=== PATIENT | male | born 1975 | race Two or more races ===

== ENCOUNTER 2019-08-15 18:23 | Outpatient (AMB) | payer MEDICAID, SELFPAY ==
--- NOTE | 2019-08-15 19:47 | URCARE_ITS ---
Intake Ht./Wt. Decline/Exclusions Patient Declined Height and Weight this visit: No PT Meets exclusion criteria: No Intake [place] Travel (last 14 days): No [facility] Travel (last 14 days): No Been in Contact w/Anyone Being Evaluated for Coronavirus (last 14 days): No Been in Close Contact w/Anyone Dx w/Coronavirus: No Presenting Symptoms: Cough and Fever Zika Travel: No Been in contact w/anyone who has been Dx w/Zika Virus: No Been in contact w/anyone sick during travel outside country: No Patient >or equal to 18 years BMI outside of range 18.5-24.9: Yes Visit Reasons: UC Fever of unknown origin Primary Care Provider: MD URBANO RAYNALDO Is patient in pain?: No Triage Triage Allergy / Med Rec Allergies shellfish derived Allergy (Verified 08/15/19 21:20) Medication Reconciliation gabapentin 600 mg PO TID 07/19/18 [History Confirmed 08/15/19] hydrocodone-acetaminophen 1 tab PO TID 07/19/18 [History Confirmed 08/15/19] amlodipine 10 mg PO QDAY 10/17/18 [History Confirmed 08/15/19] losartan 100 mg PO QDAY 10/17/18 [History Confirmed 08/15/19] pioglitazone-metformin 1 tab PO BID 10/17/18 [History Confirmed 08/15/19] acetaminophen ER 650 mg tablet,extended release 650 mg PO Q8H PRN #30 tab 08/15/19 [Rx] benzonatate 100 mg capsule See Rx Instructions .ROUTE .COMPLEX #30 cap 08/15/19 [Rx] fluconazole 200 mg tablet 200 mg PO QDAY 08/15/19 [History Confirmed 08/15/19] hydrochlorothiazide 25 mg tablet 25 mg PO QDAY 08/15/19 [History Confirmed 08/15] ibuprofen 600 mg tablet 600 mg PO Q8H PRN #30 tab 08/15/19 [Rx] Band Placement: Patient Identification XIN: 3-Urgent Arrival Mode of Arrival: Private Vehicle Method of Arrival: Ambulatory Accompanied By: Self Prehospital Treatment: none PCP or OBGYN visit in last 3 months: Yes Language Preferred Language: [place] Laborer Required: Yes Lapel Stitcher Used: robbie ventura Social History Alcohol / Drugs Hx Alcohol Use: No Hx Substance Use: Yes (marijuana) Safety Do You Feel Safe at Home: Yes Authorities Contacted: N/A Alvarez Fall Scale Special Populations Patient Comatose, Paralyzed or Immobile: No Patient Under the Age of 44 Years Old: No Assessment History of falling; immediate or within 3 months: No Secondary diagnosis: No Ambulatory aid: None IV Infusion: No Gait/Transferring: Normal/bedrest/immobile Mental Status: Oriented to own ability Score Score: 0 Risk Level/Action Risk Level: Low Risk Action: Good Basic Nursing Care Fall Star Level 1 Fall Star Level 1: Yes Patient Education Topic Education Topics: Plan of Care Teaching Recipient: Patient Readiness, Motivation to Learn: Active Methods: Verbal instruction Educ Materials Suggested by INFO Button/Rx Monograph Given: No Response: Verbalize Understanding Lapel Stitcher Required: Yes Lapel Stitcher Used: [employer] [facility] Hx Congestive Heart Failure: No Hx Diabetes Mellitus Type 1: No Hx Diabetes Mellitus Type 2: Yes Hx Renal Disease: No Hx Chronic Obstructive Pulmonary Disease (COPD): No Past Medical History Reviewed and agree with Nursing documentation.: Yes Past Medical History History Provided By: Medical Record and Patient Past Medical History: Yes Family Medical History Systems Hx Family Cardiac Disorders: Yes (HTN) Hx Family Gastrointestinal Problems: Yes (Dad-stomach CA) Family Medical History Other Hx Family Cancer: Yes (Dad) Hx Family Surgery: Yes Cardiac Medical History Hx Cardiac Disorders: Yes Hx Congestive Heart Failure: No Hx Edema: Yes Hx Hypertension: Yes Hx Peripheral Vascular Disease: Yes (neuripathy) Endocrine Medical History Hx Endocrine Disorders: Yes Hx Diabetes Mellitus Type 1: No Hx Diabetes Mellitus Type 2: Yes Gastrointestinal Medical History Hx Gastrointestinal Disorders: Yes Hx GERD: Yes Hx Obesity: Yes Genitourinary Medical History Hx Genitourinary Disorders: Yes Hx Renal Disease: No Musculoskeletal History Hx Musculoskeletal Disorders: Yes Hx Arthritis: Yes Hx Back Pain: Yes Hx Degenerative Disk Disease: Yes Hx Degenerative Joint Disease: Yes Neurologic Medical History Hx Neurological Disorders: Yes Hx Migraine: Yes Hx Peripheral Neuropathy: Yes Psycho/Social Medical History Hx Psychosocial Disorder: Yes Hx Anxiety: Yes Respiratory Medical History Hx Asthma: Yes Hx Bronchitis: Yes Hx COPD: No Hx Pneumonia: Yes Hx Valley Fever: Yes General Surgical History Hx Surgery: Yes (appy approx 34 years ago.) Musculoskeletal Surgical History Hx Open Reduction Internal Fixation: Yes (right leg) Other Medical History ([facility]) Hx Hospitalization: Yes [facility] - Communicable Disease Hx Chicken Pox: Yes Hx Measles: Yes Hx Mumps: Yes HPI Fever of Unknown Origin History of Present Illness This is a 44-year-old male who presents to the urgent care complaining of a cough and fever for the last 2 to 3 weeks. The patient states he was recently diagnosed with valley fever and is currently taking fluconazole for his valley fever. He denies any chest pain or shortness of breath. No nausea vomiting or diarrhea. Current symptoms: Reports fever(s) and fatigue Review of Systems (UC) Review of Systems All systems reviewed & no additional complaints except as documented Const Constitutional: Reports fatigue and Reports fever(s) Card Cardiovascular: Denies chest pain and Denies shortness of breath Resp Respiratory: Reports cough and Denies shortness of breath GI Gastrointestinal: Denies diarrhea, Denies nausea and Denies vomiting Endo Endocrine: Reports fatigue Exam (UC) Limitations: no limitations General Appearance: alert, in no apparent distress, comfortable, cooperative, healthy appearing, well developed and well groomed Head exam: atraumatic, normocephalic and normal inspection Eye exam: Reports normal appearance and Reports EOMI ENT exam: Present normal exam, normal external ear exam, TM's normal bilaterally, normal oropharynx and mucous membranes moist Neck Exam: Present normal inspection and supple Chest/Breast Exam: Present normal inspection and symmetric chest wall rise SPO2%: 97% SPO2 type: Room Air SPO2% Normal/Abnormal: Normal Respiratory exam: Present normal lung sounds bilaterally, normal respiratory effort, able to speak in complete sentences and clear to ascultation bilaterally Cardiovascular exam: Present regular rate and regular rhythm Extremities exam: normal inspection Back exam: Present normal inspection Neurological Exam: Present alert, awake and oriented X3 Psychiatric exam: Present normal affect and normal mood Skin exam: Present warm, dry, intact and normal color Office Procedures UC Level of Care Nursing/Assessment/Reassessment Patient Status: Established Patient Nursing Assessment/Reassessment: Triage Asessment, Initial Vital Signs and RN General Assessments Coordination of Care: DC Instructions Simple 1-2 sets Special Needs: Communication Barrier and Translation/Lapel Stitcher Established Patient Charge Established Patient Point Assignment: 80 Established Patient Point Assignment: EP Level 3 (80-115) Procedures: Pulse Ox reading: Yes Supplemental Info CXR: no obvious pna / inf / PTX noted. df Assessment and Plan Assessment & Plan (1) Fever: (2) Cough: (3) History of [place] Valley fever: Plan Details Other Medications: New: hydrochlorothiazide 25 mg PO QDAY acetaminophen ER swallow whole; do not crush, chew, break, dissolve, cut, or open 650 mg PO Q8H PRN 30 tabs 0RF fever or pain ibuprofen prn pain / fever 600 mg PO Q8H PRN 30 tabs 0RF fever or pain benzonatate (Tessalon Perles) 1-2 cap(s) PO Q8 hours prn cough 30 caps 0RF cough Other Orders: Orders: XR chest 2V Today Additional Comments: Follow up with your doctor in 3-5 days for recheck and reevaluation. Take any / all medication(s) as directed. If worse, not improving, or any concerns go immediately to the EMERGENCY ROOM. DISCHARGE NOTE: I emphasized the need for follow-up with their primary care provider. Failure to follow-up could result in a poor outcome or failure of treatment altogether. If the patient is unable to follow-up with their primary care provider, they are to go to the Emergency Department if their symptoms persist or worsen. I have reviewed the discharge treatment plan and follow-up instructions with the patient and/or patient representatives, addressed any concerns, and answered any and all questions. They have verbalized understanding of the discharge treatment plan. 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 Supervising Physician: Vick Montilla [facility] Evaluation Discharge Information Seen, Treated and Released by Provider: No Left Prior to Receiving Discharge Instructions: No Transfer to Outside Facility: No Vital Signs Vitals Signs N/A: Yes Discharge Information Condition on Discharge: Stable Mode of Discharge: Ambulatory Discharge Transportation: Private Vehicle Instructions Lapel Stitcher Required: Yes Lapel Stitcher Used: robbie ventura Discharge Instructions Given To: Patient Was Follow up Care Ordered: Yes Verbalizes Understanding of Discharge Instructions: Yes [facility] information card provided?: No Patient plan follow up w/PCP for [employer]: No
--- NOTE | 2019-08-15 21:23 | XR_ITS ---
Exam: Chest PA, lateral 2 viewsTechnique: Chest upright PA lateral 2 viewsDate and time of exam: Jul ruary 2019 2139 hrs.Comparison October 19, 2018, CT chest May 17, 2018Indications: Coughing wi th fever beginning 3 weeks agoFindings:22 mm pulmonary nodule right middle lobeLeft lung clearNormal heart sizeIntact osseous structures Impression:22 mm rounded focus of parenchymal disease in the right middle lobeDifferential would incl ude infectious processes including fungal disease as well as pulmonary neoplasmPlease see the CT biop sy report October 19, 2018, CT chest report May 17, 2018
[2019-08-16 00:01] VITALS: BP 180/76; PULSE 80; RESP 20; TEMP 36.8; O2SAT 97; BMI 29.2
== END 2019-08-15 22:25 | disposition home or self-care (01) ==
PROVIDERS: PCP Specialist; Referring Provider Specialist; Visit Provider Physician Assistant

== ENCOUNTER 2024-08-18 10:53 | Emergency (ER) | payer MEDICAID, SELFPAY ==
[2024-08-18 11:04] VITALS: BMI 31.6
[2024-08-18 11:24] VITALS: BP 193/89; PULSE 107; RESP 18; TEMP 37.1; O2SAT 99
--- NOTE | 2024-08-18 12:02 | XR_ITS ---
Examination: CT brain head without contrast. 2-D sagittal coronal reconstructions Date and time of exam:August 18, 2024 1213 hours INDICATIONS: Patient fell today with injury to the head, right-sided head pain COMPARISON: January 04, 2023 CTDI: vol (mGy):49.4 DLP: (mGycm):1037 Technique: Multiple CT axial sections of the brain have been obtained, 5 mm slice thickness. Contrast has not been administered. 2-D sagittal, coronal reconstructions have been obtained Low dose protocols were performed. One or more of the following dose reduction techniques were used; automated exposure control, adjustment of the mA and/or KV according to patient size, use of iterative reconstruction technique. Findings: No significant ventricular enlargement. Intra-axial or extra-axial hemorrhage density is not seen. No mass effect or midline shift Basal cisterns are not remarkable. Fourth ventricle is midline. Cranial vault intact. Impression: Negative for acute hemorrhage, mass effect or midline shift
--- NOTE | 2024-08-18 12:02 | XR_ITS ---
Examination: AP chest single view Technique one AP upright portable chest single view Exam date and time: August 18, 2024 12:45 PM INDICATIONS: Nausea vomiting beginning one week ago. FINDINGS: Reduced inspiratory effort Normal heart size No aspiration pneumonia The osseous structures are intact IMPRESSION: Negative for aspiration pneumonia
--- NOTE | 2024-08-18 12:02 | EKG_ITS ---
[facility] Test Date: 2024-08-18 Pat Name: HANK CARDONA Department: Room: - Gender: Male Document Photographer: : 1975 Requested By: Karley Self ([facility]) Krista Order Number: [id number] Reading MD: Karley Self ([facility]) Krista Measurements Intervals [place] Rate: 99 P: 28 ND: 148 QRS: -13 QRSD: 89 T: 49 QT: 334 QTc: 429 Interpretive Statements SINUS RHYTHM MODERATE VOLTAGE CRITERIA FOR LVH, CONSIDER NORMAL VARIANT [MEETS CRITERIA IN ONE OF: R(aVL), S(V1), R(V5), R(V5/V6)+S(V1)] Compared to ECG 05/26/2023 09:10:06 No significant changes /store/S0/[id number]/[id number].pdf
--- NOTE | 2024-08-18 12:02 | PD.EDRME ---
Rapid Medical Screening Exam E Arrival date/time: 08/18/24 10:53 This is a 49-year-old male who presents to the emergency department with complaints of dizziness since Wednesday. He did have a fall on Wednesday has an abrasion to his right eyebrow. Was transported by EMS from his doctor's office I have greeted and performed a focused initial assessment of this patient. Initial appropriate labs ordered at this time. A comprehensive ED assessment and evaluation of the patient and analysis of all test and completion of medical decision making process will be conducted by additional ED provider. Chief Complaint: Weakness Time Seen by Provider: 08/18/24 11:23 Vital signs: Vital Signs Temperature 98.8 F 08/18/24 11:24 Pulse Rate 107 H 08/18/24 11:24 Respiratory Rate 18 08/18/24 11:24 Blood Pressure 193/89 H 08/18/24 11:24 Pulse Oximetry (%) 99 08/18/24 11:24 Oxygen Delivery Method Room Air 08/18/24 11:24
[2024-08-18 12:42] LABS: Basophils # (Auto) 0.1 Thou/mm3 (0.0-0.2); Basophils % (Auto) 1 % (0-2.5); Eosinophils # (Auto) 0.2 Thou/mm3 (0.0-0.5); Eosinophils % (Auto) 3 % (0-10); Hematocrit 44.1 % (41.0-53.0); Hemoglobin 16.4 g/dL (13.5-16.0); Immature Granulocytes % (Auto) 1 % (0-0); Immature Granulocytes Auto 0.05 Thou/mm3 (0.00-0.00); Lymphocytes # (Auto) 1.4 Thou/mm3 (1.0-4.8); Lymphocytes % (Auto) 18 % (10-50); Mean Corpuscular HGB Conc 37.2 g/dl (31.0-37.0); Mean Corpuscular Volume 83 fL (80-100); Monocytes # (Auto) 0.6 Thou/mm3 (0.0-0.8); Monocytes % (Auto) 8 % (0-12); Neutrophils # (Auto) 5.3 Thou/mm3 (1.8-7.7); Neutrophils % (Auto) 70 % (37-80); Nucleated Red Blood Cell % 0 /100 WBC (0); Platelet Count 189 Thou/mm3 (140-440); RDW Standard Deviation 36.7 fL (35.1-43.9); Red Blood Count 5.29 Miln/mm3 (4.50-5.90); White Blood Count 7.6 Thou/mm3 (3.8-10.6)
[2024-08-18 12:52] LABS: INR 1.1 (0.9-1.3); Prothrombin Time 11.5 Seconds (9.0-12.2)
[2024-08-18 12:57] VITALS: BP 193/89; PULSE 107
[2024-08-18] MEDS: amLODIPine BESYLATE 5 MG TABLET 10 MG PO (12:57)
[2024-08-18 12:59] LABS: Alanine Aminotransferase 119 U/L (10-49); Albumin, Serum 4.8 gm/dL (3.5-5.0); Albumin/Globulin Ratio 1.5 (1.2-2.2); Alkaline Phosphatase 81 U/L (46-116); Anion Gap 11 (7-16); Aspartate Amino Transferase 77 U/L (0-34); BUN/Creatinine Ratio 20 Ratio (12-20); Bilirubin,Total 0.9 mg/dL (0.3-1.2); Blood Urea Nitrogen 16 mg/dL (9-23); Calcium 9.3 mg/dL (8.3-10.6); Calcium (Corrected) 9.3 mg/dL (8.5-10.1); Carbon Dioxide 21.8 mMol/L (20.0-31.0); Chloride 98 mMol/L (98-107); Creatinine (Component) 0.8 mg/dL (0.6-1.3); Estimated Creatinine Clearance 106.5 mL/min (>60); Globulin 3.1 gm/dL (2.3-3.5); Glucose 318 mg/dL (74-106); Osmolality,Calculated 275 (275-295); Sodium 131 mMol/L (136-145); Total Protein 7.9 gm/dL (5.7-8.2); Troponin I < 0.020 ng/mL (0.0-0.045); eGFR > 60 See Note
[2024-08-18 15:09] LABS: Collection Type, Urine Clean Catch; Squamous Epithelial Cell,Urine 0 /hpf (0-5)
[2024-08-18 15:14] VITALS: BP 157/92; PULSE 95; RESP 18; TEMP 36.8; O2SAT 97
[2024-08-18 15:26] LABS: Amphetamine/Methamp Scrn,U Negative (Negative); Barbiturate Screen,Urine Negative (Negative); Benzodiazepines Screen,Urine Negative (Negative); Benzoylecgonine Screen, Ur Negative (Negative); Fentanyl Screen,Urine Negative (Negative); Opiate Screen,Urine Negative (Negative); THC Screen,Urine Positive (Negative)
[2024-08-18 15:33] LABS: Bilirubin,Urine Negative (Negative); Blood,Urine Trace (Negative); Clarity,Urine Clear (Clear/Hazy); Color,Urine Lt-Yellow (Lt Yel-Yel); Glucose, Urine 4+ (Negative); Ketones,Urine 1+ (Negative); Leukocyte Esterase,Urine Negative (Negative); Nitrite,Urine Negative (Negative); PH,Urine 6.5 (5.0-7.0); Protein,Urine 1+ (Neg - Trace); RBC,Urine 2 /hpf (0-3); Specific Gravity,Urine 1.035 (1.001-1.035); Urobilinogen,Urine Negative mg/dL (0.0-1.0); WBC,Urine 1 /hpf (0-5)
[2024-08-18 16:39] VITALS: BP 157/92; PULSE 95; RESP 18; TEMP 36.8; O2SAT 97
[2024-08-18] MEDS: MECLIZINE HCL 25 MG TABLET 50 MG PO (17:24)
--- NOTE | 2024-08-18 18:51 | EDNOTE_ITS ---
<Statement entered by Cyndy Louis MD - 08/19/24 18:38> As co-signing physician, I was present and available for consult prn. I concur with the plan and care as documented by the midlevel provider. ED General RME/HPI General Chief complaint: Weakness Stated complaint: NAUSEA VOMITTING Time Seen by Provider: 08/18/24 11:23 Arrival date/time: 08/18/24 10:53 RME / HPI RME / HPI narrative: 49-year-old male patient with no significant medical history except for hypertension, came in for evaluation regarding dizziness. Patient has been having dizziness for the last 4 days, he sustained a fall last Wednesday sustaining abrasion to the right forehead/eyebrow. Described as everything spinning. Denies any headache. Was brought in by EMS from doctor's office. Patient denies any upper or lower extremity weakness. Patient denies any slurring of speech. Related Data Home Medications ?Medication ?Instructions ?Recorded ?Confirmed losartan 100 mg tablet 100 mg PO BID 10/17/1811/06 hydrochlorothiazide 25 mg tablet 25 mg PO QDAY 0 11/07/19 gabapentin 600 mg tablet 600 mg PO TID 09/08/1911/06 hydrocodone 7.5 mg-acetaminophen 1 tab PO TID PRN Pain 09/08/19 11/07/19 325 mg tablet meloxicam 15 mg tablet 15 mg PO QDAY 09/08/1911/06 metformin 1,000 mg tablet 1,000 mg PO BID 09/08/1906/16 amlodipine 10 mg tablet 10 mg PO BID 11/07/19 metoprolol succinate 100 mg 100 mg PO QDAY 11/07/19 tablet,extended release 24 hr omeprazole 20 mg capsule,delayed 20 mg PO QDAY 0 11/07/19 release paroxetine HCl 10 mg tablet 10 mg PO BID 11/07/1910/26 trazodone 50 mg tablet 50 mg PO HS 11/07/19 0 Previous Rx's ?Medication ?Instructions ?Recorded promethazine 25 mg tablet 25 mg PO Q6H PRN nausea and 09/04/19 vomiting #14 tabs ibuprofen 600 mg tablet 600 mg PO TID PRN fever or p ain 04/17/20 #30 tabs ibuprofen 800 mg tablet 800 mg PO TID PRN pain #60 t abs 02/06/21 tramadol 50 mg tablet 50 mg PO TID PRN pain #30 ta bs 02/06/21 ibuprofen 800 mg tablet 800 mg PO TID PRN pain #30 t abs 11/05/21 hydroxyzine HCl 50 mg tablet 50 mg PO Q6H PRN anxiety #20 tabs 12/30/21 acetaminophen 650 mg 650 mg PO Q8H PRN fever or p ain 04/28/22 tablet,extended release #30 tabs ibuprofen 600 mg tablet 600 mg PO Q8H PRN fever or p ain 04/28/22 #30 tabs ibuprofen 800 mg tablet 800 mg PO TID PRN pain #30 t abs 06/05/22 cyclobenzaprine 10 mg tablet 10 mg PO TID PRN muscle s pasm #30 05/26/23 tabs ibuprofen 800 mg tablet 800 mg PO TID PRN pain #30 t abs 05/26/23 indomethacin 75 mg 75 mg PO BID #20 caps capsule,extended release meclizine 50 mg tablet 50 mg PO BID PRN dizziness # 30 tabs 08/18/24 Allergies Allergy/AdvReac Type Severity Reaction Status Date / Time No Known Allergies Allergy Verified 05/26/23 08:35 Review of Systems Review of Systems Narrative Review of Systems: Review of system reviewed and within normal limits except mentioned in HPI ED Exam Narrative Physical exam: VITAL SIGNS: Reviewed. GENERAL APPEARANCE: Alert and interactive, follows commands, no acute distress, HEAD AND FACE: Non-traumatic. ENT: PERRL, pink conjunctivitis, eyelid no trauma, Mucous membrane moist. NECK: Supple, nontender, no nuchal rigidity. CHEST: No tenderness, no crepitus, no paradoxical movement, no retractions. LUNGS: Clear, well ventilated, symmetric, no rales, no wheezing, no ronchi, no stridor, good breath sounds bilaterally. HEART: Regular rate, regular rhythm, no murmur, no gallops. ABDOMEN: Soft, positive bowel sounds, nondistended, no guarding, nontender, no rebound, no masses, RECTAL: Deferred. GENITAL: Deferred. NEUROLOGICAL: Gross motor function intact sensory function intact, Appropriate for age. MUSCULOSKELETAL: low back nontender, full range of motion. EXTREMITIES: Nontender, full range of motion. SKIN: Color pink, dry, no rash, no lacerations, no abrasions, no contusions. LYMPHATICS: Deferred. 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 Care 08/18/24 12:02 Active EKG (ED ONLY) *Do not use* NOW Care 08/18/24 12:[address] head/brain wo con Stat Exams 08/18/24 12:02 Completed EKG (ED Only) Stat Exams 08/18/24 12:02 Draft XR chest 1V portable Stat Exams 08/18/24 12:02 Completed CBC Stat Lab 08/18/24 12:29 Completed Comprehensive Metabolic Panel Stat Lab 08/18/24 12:29 Completed Drug Screen,Urine Stat Lab 08/18/24 15:00 Completed Prothrombin Time with INR Stat Lab 08/18/24 12:29 Completed Troponin I Stat Lab 08/18/24 12:29 Completed Urinalysis Stat Lab 08/18/24 15:00 Completed Meclizine HCl [Antivert] Med 08/18/24 17:15 Discontinued 50 mg PO X1 ONE amLODIPine BESYLATE [Norvasc] Med 08/18/24 12:01 Discontinued 10 mg PO X1 ONE Vital Signs Vital signs: Vital Signs Temperature 98.8 F 08/18/24 11:24 Pulse Rate 107 H 08/18/24 11:24 Respiratory Rate 18 08/18/24 11:24 Blood Pressure 193/89 H 08/18/24 11:24 Pulse Oximetry (%) 99 08/18/24 11:24 Oxygen Delivery Method Room Air 08/18/24 11:24 [facility] Patient data External records reviewed:: None Clinical information provided by:: none Social determinants that could affect healthcare access:: none Patient has the following chronic illnesses:: Hypertension How is presenting disease/condition affected by chronic disease/condition?: u neffected by Evaluation data The following diagnostics were reviewed and interpreted by me:: lab results, radiology exam(s) and EKG tracing(s) Lab and/or radiology exams considered but not ordered:: None Interpretation Summary: See results in [facility] Medications Medications considered but not ordered:: None Medication administrations:: Medication Administration History Discontinued Medications Amlodipine Besylate (Amlodipine Besylate 5 Mg Tablet) 10 mg PO X1 ONE Stop: 08/18/24 12:02 Last Admin: 08/18/24 12:57 Dose: 10 mg Documented By: CAL Meclizine HCl (Meclizine Hcl 25 Mg Tablet) 50 mg PO X1 ONE Stop: 08/18/24 17:16 Last Admin: 08/18/24 17:24 Dose: 50 mg Documented By: Meclizine and Norvasc Consultations Consultation(s) initiated? (list below): No Diagnosis Differential Diagnosis ED Complaint MDM: Dizziness, vertigo, elevated blood pressure intracranial bleed Most likely diagnosis given after review of the tests above:: Dizziness Admission Indicated Admission indicated?: not indicated Explain why admission is indicated or not indicated:: Stable Admission Request Was there a request for admission?: No Disposition Plan Disposition Plan: Discharge Discharge Attestation Discharge Attestation: The patient was given an opportunity to ask questions and understood the discharge instructions. Discharge instructions specifically effects, indications for sooner follow up or return to the emergency department, and the expected course of current diagnosis. Patient condition: Stable Medical Decision Making MDM Narrative MDM Narrative: 49-year-old male patient with no significant medical history except for hypertension, came in for evaluation regarding dizziness. Patient has been having dizziness for the last 4 days, he sustained a fall last Wednesday sustaining abrasion to the right forehead/eyebrow. Described as everything spinning. Denies any headache. Was brought in by EMS from doctor's office. Patient denies any upper or lower extremity weakness. Patient denies any slurring of speech. Laboratory workup all came back unremarkable. Except for blood sugar of 318. Urinalysis no UTI. Chest x-ray came back unremarkable. CT scan of the head also came back unremarkable as read by radiologist. EKG showed normal sinus rhythm, ventricular rate of 99 bpm, no ST segment elevation or depression noted Patient was given meclizine in the emergency room. On multiple reevaluation patient is ambulatory with no recurrence of dizziness. She is safe to go home. Patient appears nontoxic and hemodynamically stable. Patient discharged home and instructed to follow-up with primary care provider in 24 to 48 hours. Instructed to return to the emergency department immediately if worsening of symptoms Differential Diagnosis Differential Diagnosis: Dizziness, vertigo, elevated blood pressure intracranial bleed Lab Data 08/18/24 12:29 08/18/24 12:29 Labs: Lab Results 08/18/24 08/18/24 Range/Units 12:29 15:00 WBC 7.6 (3.8-10.6) Thou/mm3 RBC 5.29 (4.50-5.90) Miln/mm3 Hgb 16.4 H (13.5-16.0) g/dL Hct 44.1 (41.0-53.0) % MCV 83 (80-100) fL MCH 31.0 (25.0-35.0) pg MCHC 37.2 H (31.0-37.0) g/dl RDW Std Deviation 36.7 (35.1-43.9) fL Plt Count 189 (140-440) Thou/mm3 Neut % (Auto) 70 (37-80) % Lymph % (Auto) 18 (10-50) % Garfield % (Auto) 8 (0-12) % Eos % (Auto) 3 (0-10) % Baso % (Auto) 1 (0-2.5) % Neut # (Auto) 5.3 (1.8-7.7) Thou/mm3 Lymph # (Auto) 1.4 (1.0-4.8) Thou/mm3 Garfield # (Auto) 0.6 (0.0-0.8) Thou/mm3 Eos # (Auto) 0.2 (0.0-0.5) Thou/mm3 Baso # (Auto) 0.1 (0.0-0.2) Thou/mm3 Immature Gran # (Auto) 0.05 H (0.00-0.00) Thou/mm3 Absolute Nucleated RBC 0.00 (0.00-0.00) Thou/mm3 Immature Gran % 1 H (0-0) % Nucleated RBC % 0 (0) /100 WBC PT 11.5 (9.0-12.2) Seconds INR 1.1 (0.9-1.3) Sodium 131 L (136-145) mMol/L Potassium 4.0 (3.4-5.1) mMol/L Chloride 98 (98-107) mMol/L Carbon Dioxide 21.8 (20.0-31.0) mMol/L Anion Gap 11 (7-16) BUN 16 (9-23) mg/dL Creatinine 0.8 (0.6-1.3) mg/dL Estim Creat Clear Calc 106.5 (>60) mL/min eGFR > 60 (60 - ) See Note BUN/Creatinine Ratio 20 (12-20) Ratio Glucose 318 H (74-106) mg/dL Calculated Osmolality 275 (275-295) Calcium 9.3 (8.3-10.6) mg/dL Corrected Calcium 9.3 (8.5-10.1) mg/dL Total Bilirubin 0.9 (0.3-1.2) mg/dL AST 77 H (0-34) U/L ALT 119 H (10-49) U/L Alkaline Phosphatase 81 (46-116) U/L Troponin I < 0.020 (0.0-0.045) ng/mL Total Protein 7.9 (5.7-8.2) gm/dL Albumin 4.8 (3.5-5.0) gm/dL Globulin 3.1 (2.3-3.5) gm/dL Albumin/Globulin Ratio 1.5 (1.2-2.2) Ur Collection Type Clean Catch Urine Color Lt-Yellow (Lt Yel-Yel) Urine Clarity Clear (Clear/Hazy) Urine pH 6.5 (5.0-7.0) Ur Specific [place] 1.035 (1.001-1.035) Urine Protein 1+ A (Neg - Trace) Urine Glucose (UA) 4+ A (Negative) Urine Ketones 1+ A (Negative) Urine Blood Trace (Negative) Urine Nitrite Negative (Negative) Urine Bilirubin Negative (Negative) Urine Urobilinogen (Auto) Negative (0.0-1.0) mg/dL Ur Leukocyte Esterase Negative (Negative) Urine RBC 2 (0-3) /hpf Urine WBC 1 (0-5) /hpf Ur Squamous Epith Cells 0 (0-5) /hpf Urine Bacteria None (None) Urine Opiates Screen Negative (Negative) Urine Fentanyl Screen Negative (Negative) Ur Barbiturates Screen Negative (Negative) U Amphetamin/Meth Scrn Negative (Negative) U Benzodiazepines Scrn Negative (Negative) U Cocaine Metab Screen Negative (Negative) U Marijuana (THC) Screen Positive A (Negative) Discharge Plan Plan Patient Disposition: HOME (Self Care) Disposition Comment: stable Prescriptions/Referrals Prescriptions/Med Rec: New meclizine 50 mg tablet 50 mg PO BID PRN (Reason: dizziness) Qty: 30 0RF No Action hydrochlorothiazide 25 mg tablet 25 mg PO QDAY losartan 100 mg Tablet 100 mg PO BID gabapentin 600 mg tablet 600 mg PO TID Patient Comments: take 1 tablet by mouth three times a day meloxicam 15 mg tablet 15 mg PO QDAY Patient Comments: take 1 tablet by mouth once daily Rx Instructions: per pt he takes prn hydrocodone-acetaminophen 7.5-325 mg tablet 1 tab PO TID PRN (Reason: Pain) Patient Comments: take 1 tablet by mouth three times a day if needed metformin 1,000 mg tablet 1,000 mg PO BID hydroxyzine HCl 50 mg tablet 50 mg PO Q6H PRN (Reason: anxiety) Qty: 20 0RF promethazine 25 mg tablet 25 mg PO Q6H PRN (Reason: nausea and vomiting) Qty: 14 0RF paroxetine HCl 10 mg tablet 10 mg PO BID trazodone 50 mg tablet 50 mg PO HS metoprolol succinate 100 mg tablet extended release 24 hr 100 mg PO QDAY amlodipine 10 mg tablet 10 mg PO BID omeprazole 20 mg capsule,delayed release(DR/EC) 20 mg PO QDAY ibuprofen 600 mg tablet 600 mg PO TID PRN (Reason: fever or pain) Qty: 30 0RF tramadol 50 mg tablet 50 mg PO TID PRN (Reason: pain) Qty: 30 0RF ibuprofen 800 mg tablet 800 mg PO TID PRN (Reason: pain) Qty: 60 0RF ibuprofen 800 mg tablet 800 mg PO TID PRN (Reason: pain) Qty: 30 0RF acetaminophen 650 mg tablet extended release 650 mg PO Q8H PRN (Reason: fever or pain) Qty: 30 0RF Rx Instructions: swallow whole; do not chew/break/dissolve/open ibuprofen 600 mg tablet 600 mg PO Q8H PRN (Reason: fever or pain) Qty: 30 0RF ibuprofen 800 mg tablet 800 mg PO TID PRN (Reason: pain) Qty: 30 0RF indomethacin 75 mg capsule, extended release 75 mg PO BID Qty: 20 0RF cyclobenzaprine 10 mg tablet 10 mg PO TID PRN (Reason: muscle spasm) Qty: 30 0RF ibuprofen 800 mg tablet 800 mg PO TID PRN (Reason: pain) Qty: 30 0RF Referrals: No Primary/Family,Physician [Primary Care Provider] - In 1 week Problem List Clinical Impression: Dizziness Patient/Caregiver Discharge Instructions Discharge Activity: activity as tolerated Education Materials: Vertigo [facility] Tx Additional Instructions: Thank you for the opportunity for serving you today. You are stable for discharged . You are advised to: Follow-up with your PCP in 1 to 2 days Return to ED for worsening of symptoms Increase oral fluids Take medication as prescribed Print Language: Prydeinig Stand Alone Forms: Amy Award Info., Patient Portal Info Letter PA/RAFFI Supervising Physician SHERI/RAFFI Supervising Physician: MD Mikhail
== END 2024-08-18 18:56 | disposition home or self-care (01) ==
PROVIDERS: Nurse Practitioner Primary Care; Emergency Provider Emergency Medicine
DX: R42 Dizziness and giddiness (principal); I10 Essential (primary) hypertension
CPT/HCPCS: 36415; 70450; 71045; 80053; 80307; 81001; 84484; 85025; 85610; 93005; 99284; A9270

== ENCOUNTER 2024-11-06 21:00 | Emergency (ER) | payer MEDICAID, SELFPAY ==
[2024-11-06 21:07] VITALS: BP 196/104; PULSE 82; RESP 20; TEMP 37.4; O2SAT 96
--- NOTE | 2024-11-06 21:07 | PD.EDABDPN ---
ED Abdominal Pain RME/HPI General Chief Complaint: Urogenital-Male Stated complaint: ABD Time seen by provider: 11/06/24 21:45 Arrival date/time: 11/06/24 21:00 RME / HPI RME / HPI narrative: This section includes all my notes and documentations, including HPI, PE, and ED course. Nguyễn Hwang MD HPI: 49 y/o male with SHx of hernia repair and PMHx of [place] fever BIBA from home presents to ED c/o vertigo dizziness, bloody urine, nausea, and abdominal pain radiating to the genital area and lower back. Patient admits to symptoms worsening over the last 2 weeks.? Hasn't been taking his BP medications. No other complaints. ROS: All negative except as documented in HPI. Physical Exam: General: Alert and oriented. Appears to be in pain. Eyes: Conjunctivae and lids clear. PERRL. EOMI. ENT: No nasal congestion. Neck: Supple. No carotid bruit. No JVD. Heart: RRR. Lungs: No respiratory distress. Good air movement. No rhonchi, wheezing, rales. Abdomen: Soft with right-sided abdominal pain. Normal bowel sounds. No distension. No rebound or guarding. Back: No CVA tenderness. Skin: Warm and dry. Neuro: Alert and oriented X 3. Cranial Nerves II-XII grossly intact.? No peripheral motor deficits. Genitalia: Normal external anatomy with no gross materia. I reviewed EMS notes. I reviewed all diagnostic test results. Bedside COVID Antigen test is negative. Bedside Influenza Antigen test is negative. My review of the Head/Brain CT report is NAD. My review of the Abdomen/Pelvis CT report is NAD. Blood tests and urine tests remarkable for hyperglycemia and positive UDS for cocaine and marijuana and serum alcohol 37.9. At this point, diagnoses include Cocaine abuse with Intoxication, Marijuana use, Hyperglycemia due to Type II DM, Alcohol Intoxication, Hypertension. Treatment here included IV fluids, Dilaudid, Tylenol, Toradol, Zofran, Scopalomine patch, Rocephin, insulin, clonidine, and metoprolol. Significant improvement noted. Recommended more outpatient care. Based on my best medical judgment, made decision no further evaluation or treatment indicated at this time. Patient understands and agrees to the discharge instructions customized and printed, see below. Discharge Instructions from Dr. Hwang printed for you: 1. After extensive evaluation, there is no life-threatening condition. Such as stroke or brain tumor. 2. And there is no intra-abdominal emergency, such as appendicitis needing urgent surgery. 3. And there is no very serious infection, such as sepsis or pneumonia or kidney infection. 4. Today's diagnoses include cocaine intoxication, marijuana use, alcohol intoxication, high BP, and high sugar level. 5. See a private doctor on 11/08/2024 for recheck and further care. Ask to review all test results and official radiology reports, to make sure you receive all necessary follow-ups and monitoring. Ask for help finding causes and treatments of your problems, including the above diagnoses. You may need more care and investigation not available here in the ER, such as more imaging studies and referrals to see specialists. 6. Seek immediate medical care with worsening or with any concerns. Nguyễn Hwang MD Related Data Home Medications ?Medication ?Instructions ?Recorded ?Confirmed losartan 100 mg tablet 100 mg PO BID 10/17/18 11/07/19 hydrochlorothiazide 25 mg tablet 25 mg PO QDAY 08/15/19 11/07/19 gabapentin 600 mg tablet 600 mg PO TID 09/08/19 11/07/19 hydrocodone 7.5 mg-acetaminophen 1 tab PO TID PRN Pain 09/08/19 11/07/19 325 mg tablet meloxicam 15 mg tablet 15 mg PO QDAY 09/08/19 11/07/19 metformin 1,000 mg tablet 1,000 mg PO BID 09/08/19 11/07/19 amlodipine 10 mg tablet 10 mg PO BID 11/07/19 11/07/19 metoprolol succinate 100 mg 100 mg PO QDAY 11/07/19 11/07/19 tablet,extended release 24 hr omeprazole 20 mg capsule,delayed 20 mg PO QDAY 11/07/19 11/07/19 release paroxetine HCl 10 mg tablet 10 mg PO BID 11/07/19 11/07/19 trazodone 50 mg tablet 50 mg PO HS 11/07/19 11/07/19 Previous Rx's ?Medication ?Instructions ?Recorded promethazine 25 mg tablet 25 mg PO Q6H PRN nausea and 09/04/19 vomiting #14 tabs ibuprofen 600 mg tablet 600 mg PO TID PRN fever or pain 04/17/20 #30 tabs ibuprofen 800 mg tablet 800 mg PO TID PRN pain #60 tabs 02/06/21 tramadol 50 mg tablet 50 mg PO TID PRN pain #30 tabs 02/06/21 ibuprofen 800 mg tablet 800 mg PO TID PRN pain #30 tabs 11/05/21 hydroxyzine HCl 50 mg tablet 50 mg PO Q6H PRN anxiety #20 tabs 12/30/21 acetaminophen 650 mg 650 mg PO Q8H PRN fever or pain 04/28/22 tablet,extended release #30 tabs ibuprofen 600 mg tablet 600 mg PO Q8H PRN fever or pain 04/28/22 #30 tabs ibuprofen 800 mg tablet 800 mg PO TID PRN pain #30 tabs 06/05/22 cyclobenzaprine 10 mg tablet 10 mg PO TID PRN muscle spasm #30 05/26/23 tabs ibuprofen 800 mg tablet 800 mg PO TID PRN pain #30 tabs 05/26/23 indomethacin 75 mg 75 mg PO BID #20 caps 04/08/24 capsule,extended release meclizine 50 mg tablet 50 mg PO BID PRN dizziness #30 tabs 08/18/24 Allergies Allergy/AdvReac Type Severity Reaction Status Date / Time No Known Allergies Allergy Verified 11/06/24 21:12 Review of Systems Review of Systems Systems Reviewed: All systems reviewed, normal except as documented Past Medical History Past Medical History NEUROLOGIC: Positive Peripheral Neuropathy and Migraine CARDIAC: Positive Cardiac Disorders, Peripheral Vascular Disease, Edema and Hypertension RESPIRATORY: Positive Bronchitis and Pneumonia GASTROINTESTINAL: Positive Gastrointestinal Disorders, Gall Bladder Disease and Gastroesophageal Reflux Disease MUSCULOSKELETAL: Positive Musculoskeletal Disorders, Arthritis, Degenerative Disk Disease and Degenerative Joint Disease ENDOCRINE: Positive Endocrine Disorders and Diabetes Mellitus Type 2 PSYCHO/SOCIAL: Positive Anxiety OTHER HISTORY: Positive Hospitalization, Chicken Pox, Measles and Mumps Family History FAMILY HISTORY: Positive Family Cardiac Disorders, Family Gastrointestinal Problems, Family Cancer and Family Surgery Surgical History SURGICAL: Positive Abdominal Surgery and Open Reduction Internal Fixation Social History SMOKING STATUS: Light (< 1 pack/day) SUBSTANCE USE: crack/cocaine ED Exam Narrative Physical exam: Refer to HPI above. Course Quality Measures Possible source: pulmonary, genitourinary and skin/soft tissue Blood cultures ordered: yes Antibiotic ordered: Yes Pertinent labs: 11/06/24 11/07/24 20:30 01:24 Lactic Acid 3.9 H mMol/L 1.3 mMol/L (0.4-2.0) (0.4-2.0) Procalcitonin 0.13 ng/ml (0.0-0.49) sepsis Orders Category Date Time Status Bedside COVID-19 Antigen Test NOW Care 11/06/24 21:11 Completed Bedside Influenza A&B Antigen Test NOW Care 11/06/24 21:[address] Screening NOW Care 11/06/24 21:17 Completed Continuous Bladder Irrigation QSHIFT Care 11/06/24 21:15 Completed Walter [Urinary Catheter] QS Care 11/06/24 21:29 Completed Walter to [place] Routine Care 11/06/24 21:15 Ordered Straight [In and Out Catheter] X1 Care 11/06/24 21:[address] abdomen pelvis w con Stat Exams 11/06/24 21:[address] head/brain wo con Stat Exams 11/06/24 21:17 Completed Alcohol, Blood Medical Stat Lab 11/06/24 20:30 Completed Amylase Stat Lab 11/06/24 20:30 Completed Bilirubin,Direct Stat Lab 11/06/24 20:30 Completed Blood Culture (Lab) Stat Lab 11/06/24 20:35 Received CBC Stat Lab 11/06/24 20:30 Completed CMP [Comprehensive Metabolic Panel] Stat Lab 11/06/24 20:30 Completed CRP [C-Reactive Protein] Stat Lab 11/06/24 20:30 Completed Drug Screen,Urine Stat Lab 11/06/24 20:23 Completed ESR [Sed Rate (ESR)] Stat Lab 11/06/24 20:30 Completed Lactate (Lactic Acid) Stat Lab 11/06/24 20:30 Completed Lactic Acid, 3 HR Stat Lab 11/07/24 01:24 Completed Lipase Stat Lab 11/06/24 20:30 Completed Magnesium Stat Lab 11/06/24 20:30 Completed PT [Prothrombin Time with INR] Stat Lab 11/06/24 20:30 Completed PTT [Partial Thromboplastin Time] Stat Lab 11/06/24 20:30 Completed Procalcitonin Stat Lab 11/06/24 20:30 Completed UA, C/S IF [Urinalysis, C/S if Indicated] Stat Lab 11/06/24 20:23 Completed Acetaminophen Ivpb [Ofirmev Inj] Med 11/06/24 21:16 Discontinued 1,000 mg in 100 ml IV X1 HYDROmorphone INJ [Dilaudid Inj] Med 11/06/24 21:16 Discontinued 2 mg IVP X1 ONE Insulin Regular Med 11/06/24 22:48 Discontinued 5 unit SC X1 ONE Ketorolac Inj [Toradol Inj] Med 11/06/24 21:16 Discontinued 30 mg IVP X1 ONE Metoprolol Tartrate [Lopressor] Med 11/07/24 00:08 Discontinued 50 mg PO X1 ONE Ondansetron Inj [Zofran Inj] Med 11/06/24 21:16 Discontinued 4 mg IV X1 ONE Scopolamine [Transderm-Scop Patch] Med 11/06/24 21:17 Discontinued 1 mg TOP X1 ONE Sodium Chloride 0.9% 1000 ml [Ns] 1,000 ml Med 11/06/24 21:15 Discontinued IV 999 mls/hr Sodium Chloride 0.9% 1000 ml [Ns] 1,000 ml Med 11/06/24 21:16 Discontinued IV 999 mls/hr Sodium Chloride 0.9% 1000 ml [Ns] 1,000 ml Med 11/06/24 21:16 Discontinued IV 999 mls/hr cefTRIAXone/D5w 1gm IV premix [Rocephin/D5w 1gm IV Med 11/06/24 21:15 Discontinued premix] 1 gm in 50 ml IV X1 cloNIDine HCL [Catapres] Med 11/07/24 00:08 Discontinued 0.2 mg PO X1 ONE Vital Signs Vital signs: Vital Signs Temperature 99.4 F 11/06/24 21:07 Pulse Rate 82 11/06/24 21:07 Respiratory Rate 20 11/06/24 21:07 Blood Pressure 196/104 H 11/06/24 21:07 Pulse Oximetry (%) 96 11/06/24 21:07 Oxygen Delivery Method Room Air 11/06/24 21:07 Abdominal Pain MDM MDM Narrative MDM Narrative:: Scribe Attestation: Asmita Banuelos am scribing for and in the presence of Dr. Hwang. Provider Notation: Although this document has been carefully reviewed, there may still be some phonetic and other typographical errors.? These errors are purely grammatical due to imperfections in the software program and should not be construed in any way to? compromise the substance of the patient's medical care during this visit. 49 y/o male with SHx of hernia repair and PMHx of [place] fever [place] presents to ED c/o dizziness, bloody urine, nausea, and abdominal pain radiating to the genital area and lower back. Patient data External records reviewed:: [facility] previous records and EMS form Clinical information provided by:: patient and EMS Social determinants that could affect healthcare access:: substance use (Crack/Cocaine, Marijuana, Alcohol.) Patient has the following chronic illnesses:: None reported How is presenting disease/condition affected by chronic disease/condition?: no chronic disease Evaluation data The following diagnostics were reviewed and interpreted by me:: lab results, radiology exam(s) and EKG tracing(s) (My interpretation of the EKG is: Sinus rhythm (60 bpm) with first-degree AV block and nonspecific ST-T changes. Nguyễn Hwang MD) Lab and/or radiology exams considered but not ordered:: None Interpretation Summary: I reviewed all diagnostic test results. Bedside COVID Antigen test is negative. Bedside Influenza Antigen test is negative. My review of the Head/Brain CT report is NAD. My review of the Abdomen/Pelvis CT report is NAD. Blood tests and urine tests remarkable for hyperglycemia and positive UDS for cocaine and marijuana and serum alcohol 37.9. Medications / Prescriptions Medications or Prescriptions considered but not ordered:: None Medication administrations:: Medication Administration History Discontinued Medications Clonidine (Clonidine Hcl 0.1 Mg Tablet) 0.2 mg PO X1 ONE Stop: 11/07/24 00:09 Last Admin: 11/07/24 00:28 Dose: 0.2 mg Documented By: JENNY Hydromorphone HCl (Hydromorphone Inj 2 Mg/Ml Vial) 2 mg IVP X1 ONE Stop: 11/06/24 21:17 Last Admin: 11/06/24 21:40 Dose: 2 mg Documented By: NEHA Ceftriaxone Sodium/Dextrose (Rocephin/D5w 1gm Iv Premix) 1 gm in 50 mls @ 100 mls/hr IV X1 ONE Stop: 11/06/24 21:44 Last Infusion: 11/06/24 22:45 Dose: Infused Documented By: Admin: 11/06/24 21:35 Dose: 100 mls/hr Documented By: NEHA Sodium Chloride (Ns) 1,000 mls @ 999 mls/hr IV .Q1H1M ONE Stop: 11/06/24 22:15 Last Infusion: 11/06/24 22:45 Dose: Infused Documented By: Admin: 11/06/24 21:38 Dose: 999 mls/hr Documented By: NEHA Acetaminophen (Ofirmev Inj) 1,000 mg in 100 mls @ 250 mls/hr IV X1 ONE Stop: 11/06/24 21:39 Last Infusion: 11/06/24 22:43 Dose: Infused Documented By: Admin: 11/06/24 21:36 Dose: 250 mls/hr Documented By: NEHA Sodium Chloride (Ns) 1,000 mls @ 999 mls/hr IV .Q1H1M ONE Stop: 11/06/24 22:16 Last Infusion: 11/06/24 22:45 Dose: Infused Documented By: Admin: 11/06/24 21:38 Dose: 999 mls/hr Documented By: NEHA Sodium Chloride (Ns) 1,000 mls @ 999 mls/hr IV .Q1H1M ONE Stop: 11/06/24 22:16 Last Infusion: 11/06/24 22:45 Dose: Infused Documented By: Admin: 11/06/24 21:37 Dose: 999 mls/hr Documented By: NEHA Insulin Human Regular (Insulin Hum Regular 1 Unit/0.01 Ml (Per Unit)) 5 unit SC X1 ONE Stop: 11/06/24 22:49 Last Admin: 11/06/24 23:10 Dose: 5 unit Documented By: JENNY Co-signed By: NEHA Ketorolac Tromethamine (Ketorolac Inj 30 Mg/Ml Vial) 30 mg IVP X1 ONE Stop: 11/06/24 21:17 Last Admin: 11/06/24 21:40 Dose: 30 mg Documented By: NEHA Metoprolol Tartrate (Metoprolol Tartrate 25 Mg Tablet) 50 mg PO X1 ONE Stop: 11/07/24 00:09 Last Admin: 11/07/24 00:28 Dose: 50 mg Documented By: JENNY Ondansetron HCl (Ondansetron Inj 2 Mg/Ml Inj 2 Ml) 4 mg IV X1 ONE; Protocol Stop: 11/06/24 21:17 Last Admin: 11/06/24 21:35 Dose: 4 mg Documented By: NEHA Scopolamine (Scopolamine 1 Mg Tdsy) 1 mg TOP X1 ONE Stop: 11/06/24 21:18 Last Admin: 11/06/24 21:41 Dose: 1 mg Documented By: NEHA Treatment here included IV fluids, Dilaudid, Tylenol, Toradol, Zofran, Scopalomine patch, Rocephin, insulin, clonidine, and metoprolol. Consultations Consultation(s) initiated? (list below): No Diagnosis Differential diagnosis abdominal pain: abdominal pain, acute appendicitis, calculus of kidney, constipation, diverticulitis, gastroenteritis, pancreatitis, small bowel obstruction and other (Sepsis, UTI, pyelonephritis, CVA, brain tumor) Most likely diagnosis given after review of the tests above:: Cocaine abuse with Intoxication, Marijuana use, Hyperglycemia due to Type II DM, Alcohol Intoxication, Hypertension. Admission Indicated Admission indicated?: not indicated Explain why admission is indicated or not indicated:: With significant improvement, there was no indication for admission. Admission Request Was there a request for admission?: No Disposition Plan Disposition Plan: Discharge Discharge Attestation Discharge Attestation: The patient and all family members were given an opportunity to ask questions and understood the discharge instructions. Discharge instructions specifically effects, indications for sooner follow up or return to the emergency department, and the expected course of current diagnosis. Patient condition: Stable Discharge Plan Plan Patient Disposition: HOME (Self Care) Prescriptions/Referrals Prescriptions/Med Rec: No Action hydrochlorothiazide 25 mg tablet 25 mg PO QDAY losartan 100 mg Tablet 100 mg PO BID gabapentin 600 mg tablet 600 mg PO TID Patient Comments: take 1 tablet by mouth three times a day meloxicam 15 mg tablet 15 mg PO QDAY Patient Comments: take 1 tablet by mouth once daily Rx Instructions: per pt he takes prn hydrocodone-acetaminophen 7.5-325 mg tablet 1 tab PO TID PRN (Reason: Pain) Patient Comments: take 1 tablet by mouth three times a day if needed metformin 1,000 mg tablet 1,000 mg PO BID hydroxyzine HCl 50 mg tablet 50 mg PO Q6H PRN (Reason: anxiety) Qty: 20 0RF promethazine 25 mg tablet 25 mg PO Q6H PRN (Reason: nausea and vomiting) Qty: 14 0RF paroxetine HCl 10 mg tablet 10 mg PO BID trazodone 50 mg tablet 50 mg PO HS metoprolol succinate 100 mg tablet extended release 24 hr 100 mg PO QDAY amlodipine 10 mg tablet 10 mg PO BID omeprazole 20 mg capsule,delayed release(DR/EC) 20 mg PO QDAY ibuprofen 600 mg tablet 600 mg PO TID PRN (Reason: fever or pain) Qty: 30 0RF tramadol 50 mg tablet 50 mg PO TID PRN (Reason: pain) Qty: 30 0RF ibuprofen 800 mg tablet 800 mg PO TID PRN (Reason: pain) Qty: 60 0RF ibuprofen 800 mg tablet 800 mg PO TID PRN (Reason: pain) Qty: 30 0RF acetaminophen 650 mg tablet extended release 650 mg PO Q8H PRN (Reason: fever or pain) Qty: 30 0RF Rx Instructions: swallow whole; do not chew/break/dissolve/open ibuprofen 600 mg tablet 600 mg PO Q8H PRN (Reason: fever or pain) Qty: 30 0RF ibuprofen 800 mg tablet 800 mg PO TID PRN (Reason: pain) Qty: 30 0RF indomethacin 75 mg capsule, extended release 75 mg PO BID Qty: 20 0RF cyclobenzaprine 10 mg tablet 10 mg PO TID PRN (Reason: muscle spasm) Qty: 30 0RF ibuprofen 800 mg tablet 800 mg PO TID PRN (Reason: pain) Qty: 30 0RF meclizine 50 mg tablet 50 mg PO BID PRN (Reason: dizziness) Qty: 30 0RF Referrals: Dino Fragoso MD [Primary Care Provider] - In 1 week Problem List Clinical Impression: Cocaine abuse with intoxication, Marijuana use, Hyperglycemia due to type 2 diabetes mellitus, Alcohol intoxication, Hypertension Patient/Caregiver Discharge Instructions Discharge Activity: activity as tolerated Education Materials: ED Cocaine And Crack Abuse, ED Diabetes- Overview, ED Drug Abuse, ED Alcohol Intoxication, ED Hypertension, Established, ED Marijuana Abuse Additional Instructions: Discharge Instructions from Dr. Hwang printed for you: 1. After extensive evaluation, there is no life-threatening condition. Such as stroke or brain tumor. 2. And there is no intra-abdominal emergency, such as appendicitis needing urgent surgery. 3. And there is no very serious infection, such as sepsis or pneumonia or kidney infection. 4. Today's diagnoses include cocaine intoxication, marijuana use, alcohol intoxication, high BP, and high sugar level. 5. See a private doctor on 11/08/2024 for recheck and further care. Ask to review all test results and official radiology reports, to make sure you receive all necessary follow-ups and monitoring. Ask for help finding causes and treatments of your problems, including the above diagnoses. You may need more care and investigation not available here in the ER, such as more imaging studies and referrals to see specialists. 6. Seek immediate medical care with worsening or with any concerns. Instrucciones de balbina del Dr. Hwang, impresas para usted: 1. Tras maricarmen evaluaci?n exhaustiva, no se observa ninguna afecci?n potencialmente mortal, marielena un derrame cerebral o un tumor cerebral. 2. No se presenta ninguna emergencia intraabdominal, marielena apendicitis, que requiera cirug?a urgente. 3. No se presenta ninguna infecci?n grave, marielena sepsis, neumon?a o infecci?n renal. 4. Los diagn?sticos actuales incluyen intoxicaci?n por coca?na, consumo de marihuana, intoxicaci?n por alcohol, presi?n arterial balbina y niveles altos de az?car. 5. Consulte con un m?dico particular el 08/11/2024 para maricarmen nueva revisi?n y atenci?n adicional. Solicite la revisi?n de todos los resultados de las pruebas y los informes radiol?gicos oficiales para asegurarse de recibir todos los seguimientos y la monitorizaci?n necesarios. Solicite ayuda para encontrar las causas y los tratamientos de rosio problemas, incluidos los diagn?sticos mencionados anteriormente. Es posible que necesite m?s atenci?n e investigaciones que no est?n disponibles en urgencias, marielena m?s estudios de imagen y derivaciones a especialistas. 6. Busque atenci?n m?dica inmediata si presenta un empeoramiento o si tiene alguna inquietud. Print Language: Turkish Stand Alone Forms: Amy Award Info., Patient Portal Info Letter
[2024-11-06 21:13] VITALS: PULSE 116; RESP 18; O2SAT 99; BMI 31.6
--- NOTE | 2024-11-06 21:17 | XR_ITS ---
Examination: CT abdomen with intravenous contrast CT pelvis with intravenous contrast 2-D coronal reconstructions 2-D sagittal reconstructions Date and time of exam:November 06, 2024 2215 hours INDICATIONS: Severe abdominal pain radiating into the penis beginning 2 days ago. CTDI: vol (mGy) 7.40 DLP: (mGycm) 459 Technique: Multiple axial sections of the abdomen and pelvis have been obtained. 64 slice high-resolution scanner used. 3 mm axial sections have been obtained, post intravenous injection of 60 cc [id number] 2-D sagittal, coronal reconstructions obtained. Low dose protocols were performed. One or more of the following dose reduction techniques were used; automated exposure control, adjustment of the mA and/or KV according to patient size, use of iterative reconstruction technique. Findings: Prominent fatty infiltration throughout the liver No gallstones Spleen is not enlarged No pancreatic or adrenal mass Tiny bilateral 1 mm nonobstructing renal calculi Aorta normal size with calcification Absolute appendix No bowel obstruction Urinary Walter catheter, urinary bladder wall thickening up to 5 mm no bladder calculi No prostatomegaly Fat-containing inguinal hernias IMPRESSION: Tiny bilateral nonobstructing renal calculi, no hydronephrosis or ureteral calculi Absent appendix Cystitis pattern
--- NOTE | 2024-11-06 21:17 | XR_ITS ---
Examination: CT brain head without contrast. 2-D sagittal coronal reconstructions Date and time of exam:November 06, 2024 1010 hours COMPARISON: August 18, 2020 CTDI: vol (mGy):49.7 DLP: (mGycm): Note is Technique: Multiple CT axial sections of the brain have been obtained, 5 mm slice thickness. Contrast has not been administered. 2-D sagittal, coronal reconstructions have been obtained Low dose protocols were performed. One or more of the following dose reduction techniques were used; automated exposure control, adjustment of the mA and/or KV according to patient size, use of iterative reconstruction technique. Findings: No significant ventricular enlargement. Intra-axial or extra-axial hemorrhage density is not seen. No mass effect or midline shift Basal cisterns are not remarkable. Fourth ventricle is midline. Cranial vault intact. Maxillary antral sinusitis Impression: Negative for acute hemorrhage, mass effect or midline shift
[2024-11-06 21:22] VITALS: BP 201/117; PULSE 105; RESP 21; TEMP 38.3; O2SAT 96
[2024-11-06] MEDS: ONDANSETRON INJ 2 MG/ML INJ 2 ML 4 MG IV (21:35)
[2024-11-06] MEDS: cefTRIAXone/D5w 1gm IV premix 1 GM/50 ML BAG IV (21:35)
[2024-11-06] MEDS: ACETAMINOPHEN IVPB 1,000 MG/100 ML VIAL 250 MG IV (21:36)
[2024-11-06] MEDS: SODIUM CHLORIDE 0.9% 1000 ML 1,000 ML 999 ML IV ×3 (21:37→21:38)
[2024-11-06] MEDS: HYDROmorphone INJ 2 MG/ML VIAL IVP (21:40)
[2024-11-06] MEDS: KETOROLAC INJ 30 MG/ML VIAL IVP (21:40)
[2024-11-06] MEDS: SCOPOLAMINE 1 MG TDSY TOP (21:41)
[2024-11-06 21:48] LABS: Collection Type, Urine Clean Catch; Squamous Epithelial Cell,Urine 0 /hpf (0-5)
[2024-11-06 21:49] LABS: Lactate (Lactic Acid) 3.9 mMol/L (0.4-2.0)
[2024-11-06 21:53] LABS: Basophils # (Auto) 0.1 Thou/mm3 (0.0-0.2); Basophils % (Auto) 1 % (0-2.5); Eosinophils # (Auto) 0.2 Thou/mm3 (0.0-0.5); Eosinophils % (Auto) 2 % (0-10); Hematocrit 45.8 % (41.0-53.0); Hemoglobin 16.8 g/dL (13.5-16.0); Immature Granulocytes % (Auto) 0 % (0-0); Immature Granulocytes Auto 0.04 Thou/mm3 (0.00-0.00); Lymphocytes # (Auto) 1.9 Thou/mm3 (1.0-4.8); Lymphocytes % (Auto) 18 % (10-50); Mean Corpuscular HGB Conc 36.7 g/dl (31.0-37.0); Mean Corpuscular Hemoglobin 31.6 pg (25.0-35.0); Mean Corpuscular Volume 86 fL (80-100); Monocytes # (Auto) 0.9 Thou/mm3 (0.0-0.8); Monocytes % (Auto) 9 % (0-12); Neutrophils % (Auto) 70 % (37-80); Nucleated Red Blood Cell % 0 /100 WBC (0); Platelet Count 183 Thou/mm3 (140-440); RDW Standard Deviation 43.5 fL (35.1-43.9); Red Blood Count 5.32 Miln/mm3 (4.50-5.90); White Blood Count 10.1 Thou/mm3 (3.8-10.6)
[2024-11-06 21:59] LABS: Bilirubin,Urine Negative (Negative); Blood,Urine Negative (Negative); Clarity,Urine Clear (Clear/Hazy); Color,Urine Colorless (Lt Yel-Yel); Culture Indicated,Urine Not Indicated; Glucose, Urine 4+ (Negative); Ketones,Urine 1+ (Negative); Leukocyte Esterase,Urine Negative (Negative); Nitrite,Urine Negative (Negative); PH,Urine 6.5 (5.0-7.0); Protein,Urine Negative (Neg - Trace); RBC,Urine 1 /hpf (0-3); Specific Gravity,Urine 1.016 (1.001-1.035); Urobilinogen,Urine Negative mg/dL (0.0-1.0); WBC,Urine < 1 /hpf (0-5)
[2024-11-06 22:01] LABS: Amphetamine/Methamp Scrn,U Negative (Negative); Barbiturate Screen,Urine Negative (Negative); Benzodiazepines Screen,Urine Negative (Negative); Benzoylecgonine Screen, Ur Positive (Negative); Fentanyl Screen,Urine Negative (Negative); Opiate Screen,Urine Negative (Negative); THC Screen,Urine Positive (Negative)
[2024-11-06 22:06] LABS: Sed Rate (ESR) 47 mm/hr (0-20)
[2024-11-06 22:15] LABS: Partial Thromboplastin Time 26.1 Seconds (22.0-36.0); Prothrombin Time 11.4 Seconds (9.0-12.2)
[2024-11-06 22:21] VITALS: BP 194/117; PULSE 98; RESP 20; TEMP 38.3; O2SAT 96
[2024-11-06 22:30] LABS: Alanine Aminotransferase 81 U/L (10-49); Albumin, Serum 4.9 gm/dL (3.5-5.0); Albumin/Globulin Ratio 1.6 (1.2-2.2); Alcohol, Blood Medical 37.9 mg/dL (0-10.0); Alkaline Phosphatase 87 U/L (46-116); Amylase 154 U/L (30-118); Anion Gap 15 (7-16); Aspartate Amino Transferase 46 U/L (0-34); BUN/Creatinine Ratio 13 Ratio (12-20); Bilirubin,Direct 0.3 mg/dL (0.0-0.3); Bilirubin,Total 1.2 mg/dL (0.3-1.2); Blood Urea Nitrogen 10 mg/dL (9-23); C-Reactive Protein 0.7 mg/dL (0.0-0.9); Calcium 9.1 mg/dL (8.3-10.6); Calcium (Corrected) 9.1 mg/dL (8.5-10.1); Carbon Dioxide 20.7 mMol/L (20.0-31.0); Chloride 97 mMol/L (98-107); Creatinine (Component) 0.8 mg/dL (0.6-1.3); Estimated Creatinine Clearance 106.5 mL/min (>60); Globulin 3.1 gm/dL (2.3-3.5); Glucose 317 mg/dL (74-106); Lipase 93 U/L (12-53); Magnesium 2.1 mg/dL (1.6-2.6); Osmolality,Calculated 277 (275-295); Potassium 3.7 mMol/L (3.4-5.1); Procalcitonin 0.13 ng/ml (0.0-0.49); Sodium 133 mMol/L (136-145); eGFR > 60 See Note
[2024-11-06] MEDS: INSULIN HUM REGULAR 1 UNIT/0.01 ML (PER UNIT) 5 UNIT SC (23:10)
[2024-11-07 00:28] VITALS: BP 187/107; PULSE 81; PULSE 82
[2024-11-07] MEDS: cloNIDine HCL 0.1 MG TABLET 0.2 MG PO (00:28)
[2024-11-07] MEDS: METOPROLOL TARTRATE 25 MG TABLET 50 MG PO (00:28)
[2024-11-07 00:46] VITALS: BP 194/87; PULSE 84; RESP 18; TEMP 36.9; O2SAT 99
[2024-11-07 00:47] LABS: Reflex Lactate? Y
[2024-11-07 01:29] LABS: Lactic Acid, 3 HR 1.3 mMol/L (0.4-2.0)
[2024-11-07 02:29] VITALS: BP 137/62; PULSE 78; RESP 19; TEMP 36.9; O2SAT 99
== END 2024-11-07 02:30 | disposition home or self-care (01) ==
PROVIDERS: Emergency Provider Emergency Medicine; PCP Family Medicine
DX: E11.65 Type 2 diabetes mellitus with hyperglycemia (principal); F14.129 Cocaine abuse with intoxication, unspecified; F10.129 Alcohol abuse with intoxication, unspecified; I10 Essential (primary) hypertension; F17.210 Nicotine dependence, cigarettes, uncomplicated; Y90.1 Blood alcohol level of 20-39 mg/100 ml; Z79.84 Long term (current) use of oral hypoglycemic drugs; R10.9 Unspecified abdominal pain
CPT/HCPCS: 51702; 36415; 70450; 74177; 80053; 80307; 80320; 81001; 82150; 82248; 83605; 83690; 83735; 84145; 85025; 85610; 85652; 85730; 86140; 87040; 87400; 87811; 96365; 96368; 96372; 96375; 99285; A4649; J0131; J0696; J1171; J1815; J1885; J2405; J7030; Q9967; A9270; G0480